=== PATIENT | male | born 1955 | race Caucasian/White ===

== ENCOUNTER 2018-05-18 04:12 | Observation (INO) | payer BC ==
[2018-05-18] VITALS (8 sets, daily range): BP systolic 126–169; BP diastolic 64–79
[~2018-05-18] VITALS: Ht 180.3 cm; Wt 109.3 kg
[~2018-05-18 04:12] MED LIST: AMIODARONE HCL200 MG PO; ASPIR 8181 MG PO; ASPIRIN325 MG PO; EFFIENT10 MG PO; LIPITOR40 MG PO; METOPROLOL TART25 MG PO; NEXIUM20 M1 PO; NEXIUM40 MG PO; XARELTO10 MG PO; ZETIA10 MG PO
[2018-05-18] MEDS ORDERED: ASPIRIN 81 MG CHEW TAB PO STA (04:41)
[2018-05-18] MEDS ORDERED: SODIUM CHLORIDE 0.9% 1000ML 1,000 ML IV STA (04:42)
[2018-05-18] MEDS ORDERED: ASPIRIN 81 MG CHEW TAB PO ONE ×2 (04:45)
[2018-05-18] MEDS ORDERED: NITROGLYCERIN 2% OINT 1 GM PKT TOP ONE (04:45)
[2018-05-18 05:05] LABS: BASOPHILS % 0.6 % (0.0-1.0); EOSINOPHILS # (AUTO) 0.4 (0.0-0.4); EOSINOPHILS % 5.8 % (0.0-6.0); HEMATOCRIT 43.1 % (38.2-49.6); HEMOGLOBIN 14.2 g/dL (14.0-18.0); LYMPHOCYTES # (AUTO) 1.6 (1.0-3.2); LYMPHOCYTES % 23.7 % (18.0-39.1); MEAN CORPUSCULAR HEMOGLOBIN 29.7 pg (28-32); MEAN CORPUSCULAR HGB CONC 32.9 g/dL (31-35); MEAN CORPUSCULAR VOLUME 90.2 fL (81-99); MONOCYTES # (AUTO) 0.9 (0.2-0.8); NEUTROPHILS # (AUTO) 3.8 (2.1-6.9); NEUTROPHILS % 56.3 % (38.7-80.0); PLATELET COUNT 247 x10e3/uL (140-360); RED BLOOD COUNT 4.78 x10e6/uL (4.3-5.7); RED CELL DISTRIBUTION WIDTH 14.6 % (11.7-14.4)
--- NOTE | 2018-05-18 05:05 | NUR ---
discussion had with dr sorensen regarding patients pulse, per patient, his baseline pulse runs at 50. patient is hemodynamically stable with all extremites warm and all pulses strong. cap refill less than 3, patients color is appropiate for race. placed on 3L for comfort and chest pain intervention.
[2018-05-18 05:26] LABS: INR 0.92; PROTHROMBIN TIME 12.8 seconds (11.9-14.5)
[2018-05-18 05:27] LABS: PARTIAL THROMBOPLASTIN TIME 33.3 seconds (23.8-35.5)
--- NOTE | 2018-05-18 05:37 | Diagnostic Imaging Report ---
Examination: Single AP view of the chest. COMPARISON: None. INDICATION: Chest pain DISCUSSION: Lines/tubes: None. Lungs: The lungs are well inflated and clear. No pneumonia or pulmonary edema. Pleura: No pleural effusion or pneumothorax. Heart and mediastinum: Mild cardiomegaly. Bones and soft tissues: No acute bony abnormalities. IMPRESSION: 1. No acute cardiopulmonary abnormalities. Signed by: Dr. Brien Reyes M.D. on 05/18/2018 5:34 AM
[2018-05-18 05:41] LABS: ALANINE AMINOTRANSFERASE 17 IU/L (0-55); ALBUMIN 3.7 g/dL (3.5-5.0); ALBUMIN/GLOBULIN RATIO 1.2 (0.8-2.0); ALKALINE PHOSPHATASE 102 IU/L (40-150); ANION GAP 10.8 mmol/L (8-16); BLOOD UREA NITROGEN 17 mg/dL (7-26); BUN/CREATININE RATIO 16 (6-25); CALCIUM 8.9 mg/dL (8.4-10.2); CARBON DIOXIDE 24 mmol/L (22-29); CHLORIDE 108 mmol/L (98-107); CREATINE KINASE 240 IU/L (30-200); CREATININE, SERUM 1.08 mg/dL (0.72-1.25); EST GLOMERULAR FILTRATION RATE > 60 ML/MIN (60-); GLUCOSE 117 mg/dL (74-118); POTASSIUM 3.8 mmol/L (3.5-5.1); SODIUM 139 mmol/L (136-145)
[2018-05-18] MEDS ORDERED: GLUCAGON FOR INJ 1 MG VIAL IV ONE (06:00)
--- NOTE | 2018-05-18 06:10 | NUR ---
dr sorensen speaking with pharmacist regarding order for glucagon placed for bradycardia
--- NOTE | 2018-05-18 07:20 | NUR ---
ASSUMED CARE AT THIS TIME. PATIENT AWAKE AND ALERT. RESP EVEN AND UNLABORED. SKIN WARM AND DRY. NO SIGNS OF ACUTE DISTRESS NOTED AT THIS TIME. DENIES ANY C/O AT THIS TIME.
--- NOTE | 2018-05-18 07:20 | NUR ---
WALKING ROUNDS WITH ESTELLE ERICKSON
[2018-05-18] MEDS ORDERED: FAMOTIDINE 20 MG TAB PO SCH (07:45)
[2018-05-18] MEDS ORDERED: SODIUM CHLORIDE FLUSH 10 ML SYR INJ PRN (07:45)
[2018-05-18] MEDS ORDERED: MORPHINE SULFATE 2 MG/ML SYR 1ML IV PRN (07:45)
[2018-05-18 07:53] LABS: FREE THYROXINE INDEX 2.1619 (1.4-3.8); THYROID STIMULATING HORMONE 7.492 uIU/mL (0.350-4.940)
--- OUTSIDE RECORDS SUMMARY | 2018-05-18 07:53 | XMS REPORT ---
Author Author [facility] Address Unknown Phone Unavailable Care Team Providers Care Viticulture Teacher Name Role Phone Salty SALAMANCA Unavailable Unavailable Problems This patient has no known problems. Allergies, Adverse Reactions, Alerts This patient has no known allergies or adverse reactions. Medications This patient has no known medications. Results Test Description Test Time Test Comments Text Results Atomic Results Result Comments CHEST SINGLE (PORTABLE) 2018-05-18 05:32:00 [place] [id number] Patient Name: YULIANA MCGILL MR #: [id number] : 1955 Age/Sex: 62/M Req #: [id number] Adm Physician: Ordered by: DEVIKA SALAMANCA MD Report #: [id number] Location: ER Room/Bed: Procedure: [id number] DX/CHEST SINGLE (PORTABLE) Exam Date: 05/18/18 Exam Time: 05 REPORT STATUS: Signed Examination: Single AP view of the chest. COM PARISON: None. INDICATION: Chest pain DISCUSSION: Lines/tubes: None. Lungs: The lungs are well inflated and clear. No pneumonia or pulmonary edema. Pleura: No pleural effusion or pneumothorax. Heart and mediastinum: Mild cardiomegaly. Bones and soft tissues: No acute bony abnormalities. IMPRESSION: 1. No acute cardiopulmonary abnormalities. Signed by: Dr. Noble Mixon M.D. on 05/18/2018 5:34 AM Dictated By: NOBLE MIXON MD 3 Transcribed By: JAYLA on 05/18/18533 COPY TO: DEVIKA SALAMANCA MD
[2018-05-18] MEDS ORDERED: NITROGLYCERIN 2% OINT 1 GM PKT TOP SCH (08:00)
[2018-05-18] MEDS ORDERED: MORPHINE SULFATE INJ 4 MG/ML INJ 1ML IV PRN (08:00)
[2018-05-18 08:08] LABS: CLARITY,URINE CLEAR (CLEAR); COLOR,URINE YELLOW (YELLOW)
[2018-05-18 08:09] LABS: BILIRUBIN,URINE NEGATIVE (NEGATIVE); KETONES,URINE NEGATIVE (NEGATIVE); LEUKOCYTE ESTERASE ,URINE NEGATIVE (NEGATIVE); NITRITE,URINE NEGATIVE (NEGATIVE); PROTEIN,URINE DIPSTICK NEGATIVE (NEGATIVE); URINE UROBILINOGEN 0.2 mg/dL (0.2 - 1)
[2018-05-18 08:25] LABS: EPITHELIAL CELLS,URINE RARE /LPF
--- NOTE | 2018-05-18 08:31 | NUR ---
PATIENT AWAKE AND ALERT EATING BREAKFAST TRAY. DENIES ANY C/O AT THIS TIME. NO SIGNS OF ACUTE DISTRESS NOTED AT THIS TIME.
[2018-05-18] MEDS ORDERED: EZETIMIBE 10 MG TAB PO SCH (09:00)
[2018-05-18] MEDS ORDERED: ASPIRIN 81 MG CHEW TAB PO SCH (09:00)
[2018-05-18] MEDS ORDERED: NON-FORMULARY MEDICATION (Atorvastatin Calcium (Lipitor) 40 MG) PO SCH (09:00)
[2018-05-18] MEDS ORDERED: PRASUGREL 10 MG TAB PO SCH ×2 (09:00→09:49)
--- NOTE | 2018-05-18 09:45 | NUR ---
EDUCATED PATIENT AND FAMILY ON NPO STATUS AND UPDATED ON THE CURRENT PLAN OF CARE,VERBALIZED UNDERSTANDING. NO SIGNS OF ACUTE DISTRESS NOTED AT THIS TIME.DENIES ANY C/O AT THIS TIME.
--- NOTE | 2018-05-18 12:00 | Consultation ---
DATE OF CONSULTATION: 05/18/2018 REASON FOR CONSULTATION: Chest pain. HISTORY OF PRESENT ILLNESS: This is a 62-year-old male, who presented with chest pain. According to the patient, he started having sharp left-sided chest pain on a scale of 8/10 that radiated to his left arm. He stated that the pain has been going on off and on for one week, is still present and he decided to come to the emergency room for further evaluation. He was recently seen by Dr. Fabian Bowers on May 04, he had a negative stress test. He also had a history of AFib, used to be on Xarelto and amiodarone, which were stopped due to bradycardia. He denied any palpitation, any diaphoresis, any nausea or vomiting. Troponin x3 was negative. CK and CK-MB was elevated and chest x-ray showed no abnormalities. PAST MEDICAL HISTORY: CAD, paroxysmal AFib, hypothyroidism, hypertension, hyperlipidemia, reflux, and bradycardia. PAST SURGICAL HISTORY: Cardiac catheterization in the past with three stents. FAMILY HISTORY: Positive for CAD. SOCIAL HISTORY: No smoking. No drinking. He lives at home with family. MEDICATIONS: He was on Effient, Pepcid, Synthroid, Zetia, atorvastatin, and metoprolol. ALLERGIES: HE IS ALLERGIC TO PLAVIX. REVIEW OF SYSTEMS: Negative except those mentioned above. PHYSICAL EXAMINATION: VITAL SIGNS: Temperature 98, heart rate 40, blood pressure 127/79, respirations 16, oxygen saturation 99% on room air. GENERAL: He is awake, alert, and oriented x3. HEENT: Mucous membranes moist. NECK: Supple. LUNGS: Bilaterally clear to auscultation. CARDIOVASCULAR: S1, S2 present, but marco antonio and asymptomatic. ABDOMEN: Soft. NEUROLOGICAL: Intact. EXTREMITIES: With no edema. LABORATORY DATA: Sodium 139, potassium 3.8, chloride 108, CO2 of 24, BUN 17, creatinine 1.08, glucose 117. White blood cells 6.68, hemoglobin 14.2, hematocrit 43.1, platelets 247. PT 12.8, PTT 33.3, INR 0.92. IMPRESSION: 1. Chest pain. 2. Sinus bradycardia. 3. Hypothyroidism. 4. Coronary artery disease with chest pain. 5. Hyperlipidemia. 6. History of paroxysmal atrial fibrillation. PLAN: 1. He recently had a negative stress test in April. 2. We will go ahead and get an echocardiogram to reassess the LV and the valve function. 3. Due to the bradycardia, we will go ahead and hold the metoprolol. 4. We will continue Effient, statin, and aspirin. 5. Possible cardiac catheterization down the line with Dr. Fabian Caal. Further cardiac workup pending clinical course. Thank you for this consultation. Dictated by Davon Javed, CUSHION WORKER MD BOB Lira/MODL /[id number]
--- NOTE | 2018-05-18 12:48 | NUR ---
VERBAL REPORT GIVEN TO GEORGINA PRITCHARD.
[2018-05-18 13:25] LABS: CREATINE KINASE MB 4.1 ng/mL (0-5.0)
--- NOTE | 2018-05-18 14:22 | NUR ---
CONSENT SIGNED AND PLACED ON PT'S CLIPBOARD
[2018-05-18] MEDS ORDERED: SODIUM CHLORIDE 0.9% 1000ML 1,000 ML ONE (14:28)
--- NOTE | 2018-05-18 15:05 | History and Physical ---
CHIEF COMPLAINT: 1. Chest pain. 2. Left thumb pain. 3. Mild shortness of breath. HISTORY OF PRESENT ILLNESS: This is a 62-year-old male with a past medical history of coronary artery disease, PTCA with stent, hypertension, recently diagnosed hypothyroidism, hyperlipidemia, atrial fibrillation, who was admitted from ER with a chest pain, substernal, radiating to left upper extremity with mild shortness of breath. The patient had recent stress test done by Dr. Caal, timber framer, in his office and it as per the patient is negative. Cardiology consult was obtained. No cough, no leg pain. Has mild shortness of breath. No abdominal pain. No nausea, no vomiting. No diarrhea, no constipation. No hematemesis, no melena. No back pain. No burning urination. PAST MEDICAL HISTORY: 1. Atrial fibrillation. 2. Coronary artery disease. 3. Hypertension. 4. Hyperlipidemia. 5. Hypothyroidism. PAST SURGICAL HISTORY: History of PTCA with 3 stents. HABITS: Denies smoking. Denies alcohol use. Denies illicit drug use. SOCIAL HISTORY: The patient is , lives with . MEDICATIONS: List attached. REVIEW OF SYSTEMS: GENERAL: Denies fatigue or weakness. HEENT: No diplopia or blurred vision. CARDIOPULMONARY: Has chest pain, has shortness of breath. No palpitation. ALIMENTARY SYSTEM: No nausea. No vomiting. No diarrhea. No constipation. No hematemesis. No melena. GENITOURINARY SYSTEM: No dysuria. No hematuria. MUSCULOSKELETAL: No joint pain. CENTRAL NERVOUS SYSTEM: No focal weakness. PHYSICAL EXAMINATION: GENERAL: A 62-year-old male, who is alert and oriented x3, in no gross distress. VITAL SIGNS: Temperature 98.2, pulse 40, respiratory rate 18, blood pressure 127/79. HEENT: Head is atraumatic and normocephalic. Pupils bilaterally equal and reactive to light. Extraocular muscles are intact. NECK: Supple. No JVD. No carotid bruits. Clear to auscultation and percussion bilaterally. No added sounds. HEART: S1 and S2. Regular rate and rhythm. No S3, no S4 murmur. ABDOMEN: Soft and nontender. No guarding. No rigidity. EXTREMITIES: No clubbing. No cyanosis. +1 pitting edema. Peripheral pulse +1. CARDIOVASCULAR OR NURSE: Grossly nonfocal. LABORATORY DATA: CBC normal. Chemistry normal except high CK and CK-MB, but normal troponins. TSH 7.492. Normal T3, normal T4. EKG; sinus bradycardia, nonspecific ST-T changes. Chest x-ray, normal. ASSESSMENT: 1. Unstable angina, rule out myocardial infarction. 2. Coronary artery disease status post PTCA with stent x3. 3. Hypothyroidism, recent, may be secondary to amiodarone. 4. Atrial fibrillation, off amiodarone because of bradycardia and hypothyroidism. 5. Hypertension. 6. Hyperlipidemia. PLAN: Admit the patient to telemetry. Cardiology consult, Dr. Caal. Cardiac enzymes q.6 h. x3. Labs; CBC, BMP, and lipid panel tomorrow. Continue all home medicine. Aspirin and antiplatelet therapy. Further recommendation by timber framer. We will start levothyroxine 25 mcg daily. MD ABHI Mckeon/MAIRA /[id number]
[2018-05-18] MEDS ORDERED: LIDOCAINE HCL 2% LOCAL 20 ML VIAL ONE (15:52)
[2018-05-18] MEDS ORDERED: IOPAMIDOL 370 MG/ML 200 ML INFUS..BTL INJ ONE (15:52)
[2018-05-18] MEDS ORDERED: HEPARIN SOD/SOD CHLORIDE 2,000 ML ONE (15:52)
--- NOTE | 2018-05-18 15:56 | NUR ---
laboratory veterinarian team in room at this time.
[2018-05-18] MEDS ORDERED: MIDAZOLAM HCL 2 MG/2 ML VIAL ONE (16:15)
[2018-05-18] MEDS ORDERED: FENTANYL CITRATE/PF 100MCG/2 ML INJ ONE (16:16)
[2018-05-18] MEDS ORDERED: BIVALRIUDIN 250 MG/VIAL VIAL IV ONE (16:33)
[2018-05-18] MEDS ORDERED: SODIUM CHLORIDE 0.9% 50ML 50 ML ONE (16:33)
--- NOTE | 2018-05-18 17:10 | NUR ---
pt to ACU 9 for completion of angiomax. No acute distress or need. No gross issues at this time. VS wnl for patient and continues to be bradycardic from 40-46 bpm. asymptomatic. Family at bedside. [place] to room to discuss findings and interventions - f
--- NOTE | 2018-05-18 17:45 | NUR ---
Angiomax gtt complete. awaiting room assignment. No acute distress at this time
--- NOTE | 2018-05-18 18:10 | NUR ---
Received patient from [employer], a/ox3, s/p angioplasty of stents to RCA, no new stents placed per report, VSS, no resp distress, on Tele running Mukul, right groin with angioseal, no hematoma, no bleeding noted, IV in place running. Patient to maintain bedrest from 1715 to 1115, he is aware, will monitor.
--- NOTE | 2018-05-18 18:15 | NUR ---
Report provided to Yung ERICKSON, review of procedural findings and medications given. Patient awake and alert. maintains airway and room air saturations of 98-100%. No gross issues of pressure, pain, pallor or dysrhythmia. IV site patent with NS 0.9% at 125ml/hr by dial-flow. patient hemodynamically stable with hemostasis right groin dressing CDI w/o s/s of bleeding. family not available. Snack tray provided for mild headache. patient transferred to [facility] on telemetry #14. - f procedure: LHC w/ instent PTCA to RCA Sheath puller: Ten angioseal VIP 6fr to right groin Meds Given Intra-Procedure Sedatives Versed - 2 mg Fentanyl - 50 mcg Anticoagulants Angiomax - bolus and gtt appropriate for weight of 103KG Fluids Input - 500 Output - dtv Contrast Isovue 370 - 110ml
--- NOTE | 2018-05-18 19:10 | NUR ---
REPORT TAKEN FROM AM GEORGINA REHMAN.AAOX4.BED REST TILL 2300HRS.RT GROIN C&D DRY AND INTACT.NO RESP.DISTRESS.NO CHEST PAIN VOICED.BED LOCKED AND IN LOWEST POSITION.PHONE AND CALL LIGHT WITHIN REACH.INSTRUCTED TO CALL FOR ASISTANCE NEEDED.
[2018-05-18] MEDS ORDERED: ATORVASTATIN 40 MG TAB PO SCH ×2 (21:00)
--- NOTE | 2018-05-18 21:00 | NUR ---
HAS C/O HEADACHE.INFORMED TO DR.PATEL BacaRECEIVED NEW ORDERS.PT VOIDED.STABLE CONDITION.PEDAL PULSE NOTED.
[2018-05-18] MEDS: ACETAMINOPHEN 325 MG TAB PO PRN (21:20)
[2018-05-18 21:28] LABS: CREATINE KINASE MB 3.4 ng/mL (0-5.0)
--- NOTE | 2018-05-18 23:53 | Operative Report ---
DATE OF PROCEDURE: 05/18/2018 SURGEON: Fabian Caal MD PROCEDURE: Percutaneous transluminal coronary angioplasty of the right coronary artery and left heart catheterization. INDICATION: Acute coronary syndrome. COMPLICATIONS: None. ANESTHESIA: Versed, fentanyl, and lidocaine. TECHNIQUE: The right groin was draped and prepped in the usual fashion. The area was anesthetized with lidocaine. Standard Seldinger technique was used to place a 6-Korean sheath into the right femoral artery without difficulty. A JL4 catheter was used to selectively engage the left coronary artery. A 3DRC catheter was used to selectively engage the right coronary artery. A pigtail catheter was used to perform a left ventriculogram. Attention was then turned to the in-stent restenosis in the right coronary artery. The patient was bolused with Angiomax. A JL4 guiding catheter with side holes was used to select and engage the right coronary artery. ChoICE PT wire was used to cross the area of stenosis. The previously placed stents in the right coronary artery were then sequentially dilated with a 3.0 x 15 mm noncompliant balloon, which was inflated up to 18 atmospheres for 30 seconds at a time. An AngioSeal device was used for closure. There were no complications. There was minimal residual stenosis. RESULTS: As follows: 1. Normal left main trunk. 2. There is a large left anterior descending artery, which gave rise to medium-sized diagonal branch. There was minimal disease in the left anterior descending artery and diagonal branch. 3. There was a medium-sized AV circumflex artery, which gave rise to a medium-sized bifurcating first obtuse marginal branch and a small second obtuse marginal branch. There was about 40% stenosis in the second obtuse marginal branch. 4. There was a large dominant right coronary artery, which had several previously placed stents in the proximal and midportion of the vessel. There was about 60% in-stent restenosis. 5. The left ventriculogram demonstrated an ejection fraction of 55% with normal left ventricular size and function. CONCLUSION: Successful percutaneous transluminal coronary angioplasty of the right coronary artery. Fabian Caal MD DSH/MODL /[id number]
[2018-05-19] VITALS: BP 123/61
--- NOTE | 2018-05-19 00:48 | NUR ---
Resting comfortably in the bed.
--- NOTE | 2018-05-19 03:00 | NUR ---
PT AMBULATES .VOIDED.STABLE CONDITION.
[2018-05-19 04:00] VITALS: BP 140/69
[2018-05-19] MEDS ORDERED: LEVOTHYROXINE SODIUM 25 MCG TABLET PO SCH ×2 (05:21→06:00)
[2018-05-19] MEDS: ACETAMINOPHEN 325 MG TAB PO PRN (05:44)
[2018-05-19 05:56] LABS: BASOPHILS % 0.5 % (0.0-1.0); EOSINOPHILS # (AUTO) 0.3 (0.0-0.4); HEMATOCRIT 39.1 % (38.2-49.6); HEMOGLOBIN 13.2 g/dL (14.0-18.0); LYMPHOCYTES # (AUTO) 1.5 (1.0-3.2); LYMPHOCYTES % 18.4 % (18.0-39.1); MEAN CORPUSCULAR HEMOGLOBIN 29.8 pg (28-32); MEAN CORPUSCULAR HGB CONC 33.8 g/dL (31-35); MEAN CORPUSCULAR VOLUME 88.3 fL (81-99); MONOCYTES # (AUTO) 0.8 (0.2-0.8); MONOCYTES % 9.9 % (4.4-11.3); NEUTROPHILS # (AUTO) 5.6 (2.1-6.9); NEUTROPHILS % 67.7 % (38.7-80.0); PLATELET COUNT 214 x10e3/uL (140-360); RED BLOOD COUNT 4.43 x10e6/uL (4.3-5.7); RED CELL DISTRIBUTION WIDTH 14.5 % (11.7-14.4)
[2018-05-19 06:16] LABS: BLOOD UREA NITROGEN 13 mg/dL (7-26); BUN/CREATININE RATIO 15 (6-25); CALCIUM 8.4 mg/dL (8.4-10.2); CARBON DIOXIDE 26 mmol/L (22-29); CHLORIDE 108 mmol/L (98-107); CHOL/HDL RATIO 2.6 (3.9-4.7); CHOLESTEROL 116 MD/DL (0-199); CREATININE, SERUM 0.87 mg/dL (0.72-1.25); EST GLOMERULAR FILTRATION RATE > 60 ML/MIN (60-); GLUCOSE 89 mg/dL (74-118); HDL CHOLESTEROL 44 MG/DL (40-60); LDL CHOLESTEROL 54 MG/DL (60-130); SODIUM 139 mmol/L (136-145); TRIGLYCERIDES 89 MG/DL (0-149)
--- NOTE | 2018-05-19 07:00 | NUR ---
REPORT GIVEN TO MORNING RN.WALKING ROUNDS DONE.STABLE CONDITION.
[2018-05-19 07:33] LABS: CREATINE KINASE MB 3.2 ng/mL (0-5.0)
--- NOTE | 2018-05-19 07:50 | NUR ---
RECEIVED PATIENT AND WALKING ROUNDS COMPLETE. PATIENT RESTING IN BED NO SIGNS OF DISTRESS AT THIS TIME. CALL LIGHT IN REACH, WILL CONTINUE TO MONITOR.
[2018-05-19 08:00] VITALS: BP 129/68
[2018-05-19] MEDS ORDERED: PRASUGREL 10 MG TAB PO SCH ×2 (09:00→09:30)
[2018-05-19] MEDS ORDERED: ASPIRIN 325 MG TAB PO SCH (09:00)
--- NOTE | 2018-05-19 09:05 | NUR ---
PT IS FROM HOME, PCP IS [facility]. HAD STRESS TEST 1 WEEK AGO AND IS ON BLOOD THINNERS, PLAN IS TO RETURN HOME.
[2018-05-19] MEDS ORDERED: FAMOTIDINE 20 MG TAB PO SCH (09:15)
[2018-05-19] MEDS ORDERED: MORPHINE SULFATE INJ 4 MG/ML INJ 1ML IV PRN (09:30)
[2018-05-19] MEDS ORDERED: EZETIMIBE 10 MG TAB PO SCH (09:30)
[2018-05-19] MEDS ORDERED: ASPIRIN 81 MG CHEW TAB PO SCH (09:30)
[2018-05-19 09:40] VITALS: BP 129/68
[2018-05-19] MEDS ORDERED: NITROGLYCERIN0.4 MG SL (11:17)
--- NOTE | 2018-05-19 11:55 | NUR ---
REMOVED PATIENTS IV. CATHETER TIP INTACT AND PRESSURE DRESSING APPLIED.
[2018-05-19 12:00] VITALS: BP 153/72
[2018-05-19] MEDS ORDERED: NITROGLYCERIN 2% OINT 1 GM PKT TOP SCH (12:00)
--- NOTE | 2018-05-19 12:23 | NUR ---
PATIENT DISCHARGED FROM FACILITY. PATIENT GATHERED ALL PERSONAL BELONGINGS, DISCHARGE INFORMATION/FOLLOW UP. NO SIGNS OF DISTRESS WHEN LEAVING FACILITY.
[2018-05-19] MEDS ORDERED: ATORVASTATIN 40 MG TAB PO SCH (21:00)
== END 2018-05-19 12:23 | disposition home or self-care (01) ==
LOC: ER 04:12 → ERHOLD 07:48 → UNDOADMOB 07:48 → CATH LAB 16:57 → IMCU 17:41 → MED/SURG 18:06
PROVIDERS: ADMIT Internal Medicine; ATTEND Internal Medicine
DX: I25.110 Atherosclerotic heart disease of native coronary artery with unstable angina pectoris (principal); E03.9 Hypothyroidism, unspecified; R00.1 Bradycardia, unspecified; I48.0 Paroxysmal atrial fibrillation; Z95.5 Presence of coronary angioplasty implant and graft; I10 Essential (primary) hypertension
CPT/HCPCS: 36415 ×2; 71045; 80048; 80053; 80061; 81001; 82550 ×2; 82553 ×2; 83880; 84436; 84443; 84479; 84484 ×2; 85025 ×2; 85610; 85730; 92920; 93005; 93306; 93458; 99284; C1725; C1769; G0378 ×2; J0583; J1610; J2001; J2250; J7030; Q9967

== ENCOUNTER 2023-09-18 10:37 | Emergency (ER) | payer MEDICARE, OTHER ==
[~2023-09-18] VITALS: Ht 180.3 cm; Wt 112.0 kg
[~2023-09-18 10:37] MED LIST changes: +AMIODARONE HCL100 MG PO; +B12 ACTIVE1000 MCG PO; +ELIQUIS5 MG PO; +LEVOTHYROXINE50 MCG PO; +NITROGLYCERIN0.4 MG SL; +PRILOSEC OTC20 MG PO; +RAMIPRIL5 MG PO; +VITAMIN C1000 MG PO; +VITAMIN D250 MCG PO
[2023-09-18 10:51] VITALS: TEMP 97.5
[2023-09-18 12:00] VITALS: PULSE 48; RESP 17; O2SAT 98
[2023-09-18] MEDS ORDERED: AUGMENTIN 500-1 EACH PO (12:14)
== END 2023-09-18 12:52 | disposition home or self-care (01) ==
LOC: ER 10:49
DX: R05.9 Cough, unspecified (principal); J06.9 Acute upper respiratory infection, unspecified; I10 Essential (primary) hypertension; I48.91 Unspecified atrial fibrillation; E78.5 Hyperlipidemia, unspecified; K21.9 Gastro-esophageal reflux disease without esophagitis; Z11.52 Encounter for screening for COVID-19
CPT/HCPCS: 83518; 87070; 99283; U0002

== ENCOUNTER 2024-06-11 14:58 | Outpatient (RCR) | payer MEDICARE ==
[~2024-06-11 14:58] MED LIST changes: +AUGMENTIN 500-1 EACH PO
== END 2024-06-12 ==
LOC: PT 14:58
PROVIDERS: ATTEND Specialist
DX: S46.011A Strain of muscle(s) and tendon(s) of the rotator cuff of right shoulder, initial encounter (principal); X50.9XXA Other and unspecified overexertion or strenuous movements or postures, initial encounter